=== PATIENT | male | born 1950 | race Caucasian/White ===

== ENCOUNTER → 2018-07-10 | Outpatient (CLI) | payer MEDICARE | END | disposition home or self-care (01) | LOC: CFH 12:02 | PROVIDERS: ATTEND Internal Medicine | DX: J84.10 Pulmonary fibrosis, unspecified (principal) | CPT/HCPCS: 71250 ==

== ENCOUNTER → 2018-09-26 | Outpatient (CLI) | payer MEDICARE ==
[~2018-09-26] MED LIST: ASPI-496 PO; CHOL200024 PO; GLUC-149 PO; LISI-170 PO; MV,1TABL3 PO
[2018-09-26 13:57] LABS: BASOPHILS # (AUTO) 0.03 x10^3/uL (0-0.1); BASOPHILS % (AUTO) 0 % (0-1); EOSINOPHILS # (AUTO) 0.15 x10^3/uL (0-0.4); EOSINOPHILS % (AUTO) 2 % (1-7); LYMPHOCYTES # (AUTO) 1.38 x10^3/uL (1-3.4); LYMPHOCYTES % (AUTO) 17 % (22-44); MD NO; MEAN CORPUSCULAR HGB CONC 33.6 g/dL (33.2-36.2); MEAN CORPUSCULAR VOLUME 92.2 fL (81-97); MEAN PLATELET VOLUME 7.2 fL (7.4-10.4); MONOCYTES # (AUTO) 0.86 x10^3/uL (0.2-0.8); MONOCYTES % (AUTO) 11 % (2-9); NEUTROPHILS % (AUTO) 70 % (42-75); PLATELET COUNT 277 x10^3/uL (130-400); RED BLOOD COUNT 5.17 x10^6/uL (4.38-5.82); RED CELL DISTRIBUTION WIDTH 14.1 % (9.4-14.8)
[2018-09-26 13:58] LABS: MICROSCOPIC NOT IND
[2018-09-26 14:06] LABS: ALANINE AMINOTRANSFERASE 34 U/L (12-78); ALBUMIN 3.5 g/dL (3.4-5.0); ANION GAP 6 mmol/L (5-15); CALCIUM 8.9 mg/dL (8.5-10.1); CHLORIDE 106 mmol/L (98-107); CREATININE 0.93 mg/dL (0.7-1.3); INTERNATIONAL NORMALIZED RATIO 0.99 (0.93-1.1); PROTHROMBIN TIME 10.5 Seconds (9.6-11.5)
[2018-09-26 14:08] LABS: ALKALINE PHOSPHATASE 37 U/L (45-117); BILIRUBIN,TOTAL 0.5 mg/dL (0.2-1.0); TOTAL PROTEIN 7.1 g/dL (6.4-8.2)
[2018-09-26 14:13] LABS: HEMOGLOBIN A1C 5.5 % (4.2-6.3)
[2018-09-26 14:21] LABS: CULTURE INDICATED? NO
== END | disposition home or self-care (01) ==
LOC: STAR 12:38
PROVIDERS: ATTEND Orthopaedic Surgery
DX: Z01.818 Encounter for other preprocedural examination (principal); M17.11 Unilateral primary osteoarthritis, right knee
CPT/HCPCS: 36415; 80053; 81003; 83036; 85025; 85610; 85730; 87081; 87806; 93005; G0475

== ENCOUNTER 2018-10-09 05:26 | Observation (INO) | payer MEDICARE ==
[~2018-10-09] VITALS: Ht 182.9 cm; Wt 112.9 kg
[2018-10-09] MEDS ORDERED: MIDAZOLAM 1 MG/ML, 2ML ONE (06:24)
[2018-10-09] MEDS ORDERED: FENTANYL PF 250 MCG/5ML ONE ×2 (06:24→08:27)
[2018-10-09] MEDS ORDERED: NEOSTIGMINE 1 MG/ML, 10ML ONE (06:28)
[2018-10-09] MEDS ORDERED: CEFAZOLIN 1,000 MG ONE (06:28)
[2018-10-09] MEDS ORDERED: GLYCOPYRROLATE 0.2MG/1ML, 5ML ONE (06:28)
[2018-10-09] MEDS ORDERED: ROCURONIUM 10MG/ML,5ML ONE (06:28)
[2018-10-09] MEDS ORDERED: PROPOFOL 10 MG/ML, 20ML ONE (06:28)
[2018-10-09] MEDS ORDERED: GABAPENTIN 300 MG CAPSULE PO ONE (06:30)
[2018-10-09] MEDS ORDERED: ACETAMINOPHEN 500 MG TABLET PO ONE (06:30)
[2018-10-09] MEDS: LACTATED RINGERS 1,000 ML IV SCH ×2 (06:35→12:49)
[2018-10-09 06:36] VITALS: BP 144/96
[2018-10-09] MEDS ORDERED: TRANEXAMIC ACID 100 MG/ML, 10ML ONE ×4 (06:54)
[2018-10-09] MEDS ORDERED: KETOROLAC 60 MG/2 ML ONE (06:54)
[2018-10-09] MEDS ORDERED: BUPIVACAINE/PF 0.5% ONE (06:54)
[2018-10-09] MEDS ORDERED: TRIAMCINOLONE ACETONIDE 40 MG/ML, 1ML ONE (06:54)
[2018-10-09] MEDS ORDERED: LIDOCAINE 1%, 20ML ONE (06:55)
[2018-10-09] MEDS ORDERED: EPINEPHRINE 1 MG/ML, 1ML ONE (06:55)
[2018-10-09] MEDS ORDERED: ROPIvacaine/PF 0.2%, 20 ML ONE (06:55)
[2018-10-09] MEDS ORDERED: MORPHINE SULFATE 4 MG/ML, 1ML IVPush PRN (07:00)
[2018-10-09] MEDS ORDERED: OXYcodone 5 MG/5 ML ORAL.SOL UDC PO PRN (07:00)
[2018-10-09] MEDS ORDERED: MEPERIDINE/PF 25MG/0.5ML IVPush PRN (07:00)
[2018-10-09] MEDS ORDERED: PROMETHAZINE 25 MG/ML, 1ML IM PRN ×2 (07:00)
[2018-10-09] MEDS ORDERED: hydrALAzine 20 MG/ML, 1ML IV PRN (07:00)
[2018-10-09] MEDS ORDERED: PROMETHAZINE 25 MG/ML, 1ML IV PRN (07:00)
[2018-10-09] MEDS ORDERED: PROMETHAZINE 25 MG SUPP PR PRN (07:00)
[2018-10-09] MEDS ORDERED: ONDANSETRON 2MG/ML, 2ML IV PRN ×2 (07:00→07:30)
[2018-10-09] MEDS ORDERED: HYDROmorphone 2 MG/ML, 1ML IVPush PRN (07:00)
[2018-10-09] MEDS ORDERED: ONDANSETRON ODT 8 MG PO PRN (07:00)
[2018-10-09] MEDS ORDERED: LABETALOL 5MG/ML, 20ML IV PRN (07:00)
[2018-10-09] MEDS ORDERED: PROMETHAZINE 12.5 MG SUPP PR PRN (07:00)
[2018-10-09] MEDS ORDERED: FENTANYL PF 100 MCG/2ML IV PRN (07:00)
[2018-10-09] MEDS ORDERED: ACETAMINOPHEN 325 MG TABLET PO PRN (07:00)
[2018-10-09] MEDS ORDERED: MAGNESIUM HYDROXIDE 8%, 30ML UDC PO PRN (07:30)
[2018-10-09] MEDS ORDERED: DIPHENHYDRAMINE 50 MG CAPSULE PO PRN (07:30)
[2018-10-09] MEDS ORDERED: CEFAZOLIN PMX 1GM/50ML 50 ML IVPB SCH (07:30)
[2018-10-09] MEDS ORDERED: HYDROmorphone 1 MG/ML, 1ML IV PRN (07:30)
[2018-10-09] MEDS ORDERED: ONDANSETRON 4 MG TABLET PO PRN (07:30)
[2018-10-09] MEDS ORDERED: SENNA/DOCUSATE TABLET PO PRN (07:30)
[2018-10-09] MEDS ORDERED: ALUMINUM/MAG/SIMETHICONE 30 ML UDC PO PRN (07:30)
[2018-10-09] MEDS ORDERED: FENTANYL PF 100 MCG/2ML ONE ×4 (08:34→09:58)
[2018-10-09] MEDS: DOCUSATE 100 MG CAPSULE PO SCH ×2 (09:00→20:44)
[2018-10-09] MEDS ORDERED: OXYcodone 5 MG/5 ML ORAL.SOL UDC ONE (09:56)
[2018-10-09] MEDS ORDERED: TRANEXAMIC ACID 1,000 MG in SODIUM CHLORIDE 0.9% 100 ML IVPB ONE (10:00)
[2018-10-09] MEDS ORDERED: hydrALAzine 20 MG/ML, 1ML ONE (10:40)
[2018-10-09 13:10] VITALS: BP 143/109
[2018-10-09] MEDS: D5%-0.45NACL+KCL 20MEQ 1,000 ML IV SCH (17:02)
[2018-10-09] MEDS: CEFAZOLIN PMX 1GM/50ML 50 ML IVPB SCH (17:02)
[2018-10-09] MEDS: TAMSULOSIN 0.4 MG CAP.ER.24H PO SCH (18:21)
[2018-10-09] MEDS: ASPIRIN 81 MG TABLET EC PO SCH (18:21)
[2018-10-09 18:55] VITALS: BP 132/80
[2018-10-09] MEDS: ACETAMINOPHEN 650 MG/20.3 ML UDC PO PRN (22:28)
[2018-10-09] MEDS: OXYcodone IR 5MG TABLET PO PRN (22:29)
[2018-10-09 23:55] VITALS: BP 119/72
[2018-10-10] MEDS: CEFAZOLIN PMX 1GM/50ML 50 ML IVPB SCH (00:38)
[2018-10-10] MEDS: D5%-0.45NACL+KCL 20MEQ 1,000 ML IV SCH ×2 (01:00→11:04)
[2018-10-10] MEDS: ACETAMINOPHEN 650 MG/20.3 ML UDC PO PRN (02:22)
[2018-10-10] MEDS: OXYcodone IR 5MG TABLET PO PRN ×3 (02:22→13:03)
[2018-10-10 04:02] VITALS: BP 127/74
[2018-10-10] MEDS: ASPIRIN 81 MG TABLET EC PO SCH (05:12)
[2018-10-10] MEDS ORDERED: DEXAMETHASONE 4 MG/ML, 1ML IVPush SCH (06:00)
[2018-10-10] MEDS ORDERED: KETOROLAC 30 MG/1 ML IV SCH (07:30)
[2018-10-10 08:38] VITALS: BP 135/77
[2018-10-10] MEDS ORDERED: LISINOPRIL 20 MG TABLET PO SCH (09:00)
[2018-10-10] MEDS: DOCUSATE 100 MG CAPSULE PO SCH (09:05)
[2018-10-10] MEDS: TAMSULOSIN 0.4 MG CAP.ER.24H PO SCH (09:05)
[2018-10-10 13:00] VITALS: BP 118/77
== END 2018-10-10 13:53 | disposition home or self-care (01) ==
LOC: OUT 05:26 → ORIP 07:27 → 4NOR 11:26 → DCLOUNGE 10-10 13:32
PROVIDERS: ADMIT Orthopaedic Surgery; ATTEND Orthopaedic Surgery
DX: M17.0 Bilateral primary osteoarthritis of knee (principal); Z79.899 Other long term (current) drug therapy
CPT/HCPCS: 20610; 27447; 36415; 73560; 85014; 85018; 96365; 96366; 96375; 97116; 97150; 97161; 97165; C1713; C1776; G0378; G8978; G8979; G8980; J0171; J0360; J0690; J1100; J1885; J2250; J2704; J2710; J2795; J3010; J3301; J3480; J3490; J7120

== ENCOUNTER → 2019-10-15 | Outpatient (CLI) | payer MEDICARE ==
[~2019-10-15] MED LIST changes: +REGADENOSON 0.4 MG/5 ML SYRINGE ONE
== END | disposition home or self-care (01) ==
LOC: CFH 07:24
PROVIDERS: ATTEND Internal Medicine Cardiovascular Disease
DX: Z01.810 Encounter for preprocedural cardiovascular examination (principal)
CPT/HCPCS: 78452; 93017; A9502; J2785

== ENCOUNTER → 2019-10-19 | Outpatient (CLI) | payer MEDICARE ==
[~2019-10-19] MED LIST changes: -REGADENOSON 0.4 MG/5 ML SYRINGE ONE
== END | disposition home or self-care (01) ==
LOC: CVU 14:39
PROVIDERS: ATTEND Internal Medicine Cardiovascular Disease
DX: Z01.810 Encounter for preprocedural cardiovascular examination (principal); I10 Essential (primary) hypertension
CPT/HCPCS: 93306; 93356

== ENCOUNTER 2020-01-07 09:50 | Observation (INO) | payer MEDICARE ==
[2020-01-04 09:21] LABS: BASOPHILS # (AUTO) 0.04 x10^3/uL (0-0.1); BASOPHILS % (AUTO) 1 % (0-1); EOSINOPHILS # (AUTO) 0.33 x10^3/uL (0-0.4); EOSINOPHILS % (AUTO) 4 % (1-7); LYMPHOCYTES # (AUTO) 1.66 x10^3/uL (1-3.4); LYMPHOCYTES % (AUTO) 22 % (22-44); MD NO; MEAN CORPUSCULAR HEMOGLOBIN 31.1 pg (27.5-34.5); MEAN CORPUSCULAR VOLUME 94.2 fL (81-97); MEAN PLATELET VOLUME 6.9 fL (7.4-10.4); MONOCYTES # (AUTO) 0.69 x10^3/uL (0.2-0.8); MONOCYTES % (AUTO) 9 % (2-9); NEUTROPHILS # (AUTO) 4.75 x10^3/uL (1.8-6.8); NEUTROPHILS % (AUTO) 64 % (42-75); PLATELET COUNT 247 x10^3/uL (130-400); RED BLOOD COUNT 5.35 x10^6/uL (4.38-5.82); RED CELL DISTRIBUTION WIDTH 14.4 % (9.4-14.8)
[2020-01-04 09:30] LABS: ALANINE AMINOTRANSFERASE 42 U/L (12-78); ALBUMIN 3.6 g/dL (3.4-5.0); ANION GAP 7 mmol/L (5-15); CALCIUM 8.7 mg/dL (8.5-10.1); CHLORIDE 105 mmol/L (98-107); CREATININE 0.96 mg/dL (0.7-1.3)
[2020-01-04 09:33] LABS: ALKALINE PHOSPHATASE 38 U/L (45-117); BILIRUBIN,TOTAL 0.6 mg/dL (0.2-1.0); TOTAL PROTEIN 7.2 g/dL (6.4-8.2)
[2020-01-04 09:54] LABS: INTERNATIONAL NORMALIZED RATIO 0.95 (0.93-1.1); PROTHROMBIN TIME 10.1 Seconds (9.6-11.5)
[~2020-01-07] VITALS: Ht 182.9 cm; Wt 115.8 kg
[2020-01-07] MEDS ORDERED: LACTATED RINGERS 1,000 ML IV SCH (10:08)
[2020-01-07] MEDS ORDERED: ACETAMINOPHEN 500 MG TABLET PO ONE (10:30)
[2020-01-07] MEDS ORDERED: CHLORHEXIDINE 15 ML UDC MM ONE (10:30)
[2020-01-07] MEDS ORDERED: GABAPENTIN 300 MG CAPSULE PO ONE (10:30)
[2020-01-07] MEDS ORDERED: LIDOCAINE-MPF 1%, 2ML INFIL ONE (10:30)
[2020-01-07 10:31] VITALS: BP 163/99
[2020-01-07] MEDS ORDERED: FENTANYL PF 250 MCG/5ML ONE (11:27)
[2020-01-07] MEDS ORDERED: KETOROLAC 60 MG/2 ML ONE (11:48)
[2020-01-07] MEDS ORDERED: ROPIvacaine/PF 0.2%, 20 ML ONE (11:48)
[2020-01-07] MEDS ORDERED: TRANEXAMIC ACID 100 MG/ML, 10ML ONE (11:48)
[2020-01-07] MEDS ORDERED: SODIUM CHLORIDE 0.9% 50 ML ONE (11:48)
[2020-01-07] MEDS ORDERED: VANCOMYCIN 1,000 MG ONE (11:48)
[2020-01-07] MEDS ORDERED: EPINEPHRINE 1 MG/ML, 1ML ONE (11:49)
[2020-01-07] MEDS ORDERED: POTASSIUM CHLORIDE 20 MEQ in D5%-0.45% NACL 1,000 ML IV SCH (12:04)
[2020-01-07] MEDS ORDERED: LABETALOL 20 MG/4 ML ONE (12:10)
[2020-01-07] MEDS ORDERED: PROPOFOL 10 MG/ML, 20ML ONE (12:22)
[2020-01-07] MEDS ORDERED: ONDANSETRON 2MG/ML, 2ML ONE (12:22)
[2020-01-07] MEDS ORDERED: CEFAZOLIN 1,000 MG ONE (12:22)
[2020-01-07] MEDS ORDERED: DEXAMETHASONE 4 MG/ML, 1ML ONE (12:22)
[2020-01-07] MEDS ORDERED: ONDANSETRON 2MG/ML, 2ML IVPush PRN ×2 (12:30→13:00)
[2020-01-07] MEDS ORDERED: DIPHENHYDRAMINE 25 MG CAPSULE PO PRN (12:30)
[2020-01-07] MEDS ORDERED: ALUMINUM/MAG/SIMETHICONE 30 ML UDC PO PRN (12:30)
[2020-01-07] MEDS ORDERED: PSYLLIUM PACKET PO PRN (12:30)
[2020-01-07] MEDS ORDERED: DEXAMETHASONE 4 MG/ML, 1ML IVPush SCH (12:30)
[2020-01-07] MEDS ORDERED: POLYETHYLENE GLYCOL 17 GM PACKET PO PRN (12:30)
[2020-01-07] MEDS ORDERED: ACETAMINOPHEN 650 MG/20.3 ML UDC PO PRN (12:30)
[2020-01-07] MEDS ORDERED: DIPHENHYDRAMINE 50 MG/ML, 1ML IVPush PRN (12:30)
[2020-01-07] MEDS ORDERED: HYDROmorphone 1 MG/ML, 1ML INJ IVPush PRN ×2 (12:30→13:00)
[2020-01-07] MEDS ORDERED: ONDANSETRON 4 MG TABLET PO PRN (12:30)
[2020-01-07] MEDS ORDERED: KETOROLAC 30 MG/1 ML IV SCH (12:30)
[2020-01-07] MEDS ORDERED: SENNA/DOCUSATE TABLET PO PRN (12:30)
[2020-01-07] MEDS ORDERED: TRANEXAMIC ACID 1,000 MG in SODIUM CHLORIDE 0.9% 100 ML IVPB ONE (12:30)
[2020-01-07] MEDS ORDERED: PROMETHAZINE 25 MG/ML, 1ML IM PRN (12:30)
[2020-01-07] MEDS ORDERED: OXYcodone IR 5MG TABLET PO PRN (12:30)
[2020-01-07] MEDS ORDERED: MAGNESIUM HYDROXIDE 8%, 30ML UDC PO PRN (12:30)
[2020-01-07] MEDS ORDERED: FENTANYL PF 100 MCG/2ML ONE ×3 (12:44→13:56)
[2020-01-07] MEDS ORDERED: PROMETHAZINE 25 MG/ML, 1ML IVPush PRN (13:00)
[2020-01-07] MEDS ORDERED: LABETALOL 5MG/ML, 20ML IV PRN (13:00)
[2020-01-07] MEDS ORDERED: PROMETHAZINE 25 MG SUPP PR PRN (13:00)
[2020-01-07] MEDS ORDERED: OXYcodone 5 MG/5 ML ORAL.SOL UDC PO PRN (13:00)
[2020-01-07] MEDS ORDERED: hydrALAzine 20 MG/ML, 1ML IV PRN (13:00)
[2020-01-07] MEDS ORDERED: OXYcodone 5 MG/5 ML ORAL.SOL UDC ONE ×2 (13:56→14:27)
[2020-01-07] MEDS: FENTANYL PF 100 MCG/2ML IV PRN ×4 (13:58→14:20)
[2020-01-07] MEDS ORDERED: LISINOPRIL 20 MG TABLET PO SCH (14:42)
[2020-01-07 15:41] VITALS: BP 137/89
[2020-01-07 18:34] VITALS: BP 142/62
[2020-01-07] MEDS ORDERED: CEFAZOLIN PMX 1GM/50ML 50 ML IVPB SCH (19:30)
[2020-01-07] MEDS ORDERED: DOCUSATE 100 MG CAPSULE PO SCH (21:00)
[2020-01-07] MEDS ORDERED: ASPIRIN 81 MG TABLET EC PO SCH (21:00)
[2020-01-08] MEDS ORDERED: TAMSULOSIN 0.4 MG CAP.ER.24H PO SCH (09:00)
[2020-01-08] MEDS ORDERED: CHOLECALCIFEROL 1,000 UNIT TABLET PO SCH (09:00)
== END 2020-01-07 18:54 | disposition home or self-care (01) ==
LOC: OUT 09:50 → ORIP 12:04 → 4NE 15:29
PROVIDERS: ADMIT Orthopaedic Surgery; ATTEND Orthopaedic Surgery
DX: M17.12 Unilateral primary osteoarthritis, left knee (principal); I10 Essential (primary) hypertension; Z68.34 Body mass index [BMI] 34.0-34.9, adult; Z79.82 Long term (current) use of aspirin; Z03.818 Encounter for observation for suspected exposure to other biological agents ruled out; Z79.899 Other long term (current) drug therapy; Z79.01 Long term (current) use of anticoagulants
CPT/HCPCS: 27447; 36415; 73560; 80053; 83036; 85025; 85610; 85730; 87081; 87806; 93005; 96374; C1713; C1776; G0378; J0171; J0690; J1100; J1885; J2405; J2704; J2795; J3010; J3480; J3490; J7120; U0001; J3370; G0475